=== PATIENT | female | born 1995 | race Caucasian/White ===

== ENCOUNTER 2018-04-18 23:11 | Emergency (ER) | payer OTHER ==
[~2018-04-18 23:11] MED LIST: BISM-40 PO; CYCL10TA29 PO; IBUP-1671 PO; IBUP-56 PO; KET10 PO; ONDA4TAB PO; OXYC-865 PO
--- NOTE | 2018-04-18 23:26 | ER Report ---
History and Physical Time Seen By MD: 23:25 Hx. of Stated Complaint: GASSY, GI PAIN FOR ABOUT A WEEK. LOOSE STOOL, TONIGHT THE STOOL WAS BLACK HPI/ROS CHIEF COMPLAINT: GI discomfort, dark stool HISTORY OF PRESENT ILLNESS: Patient is a 23-year-old female here with complaints of being "gassy"for approximately 1 week now with dark stools this evening. Patient admits to taking Pepto-Bismol yesterday without relief of symptoms. Patient reports feeling slightly dizzy and mildly fatigued today. Patient is afebrile and hemodynamically stable at time of evaluation no acute distress. REVIEW OF SYSTEMS: Constitutional: No fever, no chills. Eyes: No discharge. ENT: No sore throat. Cardiovascular: No chest pain, no palpitations. Respiratory: No cough, no shortness of breath. Gastrointestinal: No abdominal pain, no vomiting, + dark stool Genitourinary: No hematuria. Musculoskeletal: No back pain. Skin: No rashes. Neurological: No headache. Allergies: Coded Allergies: pineapple (Unverified Allergy, Mild, 04/18/18) lactase (Unverified Allergy, Unknown, 04/18/18) wheat (Unverified Allergy, Unknown, 04/18/18) Home Meds Active Scripts Oxycodone Hcl/Acetaminophen (PERCOCET 5-325 MG TABLET) 1 Each Tablet, 1 EACH PO Q4-6H Y for pain, #12 Prov:MARTHA HILL DO 03/06/17 Cyclobenzaprine Hcl (CYCLOBENZAPRINE HCL) 10 Mg Tablet, 10 MG PO TID Y for muscle spasm relief, #20 TAB Prov:MARTHA HILL DO 03/06/17 Reported Medications Ibuprofen (MOTRIN IB) 200 Mg Tablet, 3 TAB PO Q6-8H Y for PAIN 03/06/17 Hx Smoking: No Exposure to Second Hand Smoke?: No Hx Substance Use Disorder: No Hx Alcohol Use: No Constitutional Vital Sign - Last 24 Hours 04/18/18 04/18/18 04/18/18 04/18/18 23:11 23:18 23:21 23:26 Temp 98.7 Pulse ??? 65 67 Resp 12 B/P (MAP) 107/60 107/60 (76) Pulse Ox 96 95 O2 Delivery Room Air 04/18/18 04/18/18 04/18/18 04/19/18 23:30 23:41 23:56 00:00 Pulse 67 80 B/P (MAP) 98/66 (77) ???/??? (1665) Pulse Ox 94 96 04/19/18 04/19/18 04/19/18 04/19/18 00:11 00:26 00:41 00:56 Pulse ? Physical Exam General Appearance: The patient is alert, has no immediate need for airway protection and no signs of toxicity. Eyes: Pupils equal and round no pallor or injection. ENT, Mouth: Mucous membranes are moist. Respiratory: There are no retractions, lungs are clear to auscultation. Cardiovascular: Regular rate and rhythm. Gastrointestinal: Abdomen is soft and non tender, no masses, bowel sounds normal, + black stool on [place] Neurological: No focal neurological deficits Skin: Warm and dry, no rashes. Musculoskeletal: Neck is supple non tender. Extremities are nontender, nonswollen and have full range of motion. DIFFERENTIAL DIAGNOSIS: After history and physical exam differential diagnosis was considered for gastrointestinal bleeding, Pepto-Bismol, GI discomfort Medical Decision Making Data Points Result Diagram: 04/19/18 0000 04/19/18 0000 Laboratory Hematology Test 04/18/18 23:27 04/18/18 23:44 04/19/18 00:00 Urine Color Straw Urine Clarity Clear Urine pH 7.0 pH (4.8-9.5) Urine Specific Addison 1.012 Urine Protein Negative mg/dL (NEGATIVE) Urine Glucose (UA) Negative mg/dL (NEGATIVE) Urine Ketones Negative mg/dL (NEGATIVE) Urine Blood Negative (NEGATIVE) Urine Nitrite Negative (NEGATIVE) Urine Bilirubin Negative (NEGATIVE) Urine Urobilinogen Negative mg/dL (0.2-1.9) Urine Leukocyte Esterase Trace (NEGATIVE) Urine RBC <1 /HPF (0-2/HPF) Urine WBC 1 /HPF (0-5/HPF) Urine Squamous Epithelial Cells Many /LPF (</=FEW) Urine Transitional Epithelial Cells Few /LPF (NONE-FEW) Urine Bacteria Negative /HPF (NONE-FEW) Urine Mucus None /HPF (NONE-FEW) Stool Occult Blood (IFOB) Negative (NEGATIVE) Red Blood Count 4.94 M/uL (4.17-5.56) Mean Corpuscular Volume 92.4 fL (80.0-96.0) Mean Corpuscular Hemoglobin 32.1 pg (26.0-33.0) Mean Corpuscular Hemoglobin Concent 34.7 g/dL (32.0-36.0) Red Cell Distribution Width 13.4 % (11.5-14.5) Mean Platelet Volume 9.0 fL (7.2-11.1) Neutrophils (%) (Auto) 34.4 % (39.4-72.5) Lymphocytes (%) (Auto) 57.5 % (17.6-49.6) Monocytes (%) (Auto) 5.8 % (4.1-12.4) Eosinophils (%) (Auto) 1.9 % (0.4-6.7) Basophils (%) (Auto) 0.4 % (0.3-1.4) Nucleated RBC Relative Count (auto) 0.0 /100WBC Neutrophils # (Auto) 2.6 K/uL (2.0-7.4) Lymphocytes # (Auto) 4.4 K/uL (1.3-3.6) Monocytes # (Auto) 0.4 K/uL (0.3-1.0) Eosinophils # (Auto) 0.1 K/uL (0.0-0.5) Basophils # (Auto) 0.0 K/uL (0.0-0.1) Nucleated RBC Absolute Count (auto) 0.00 K/uL Sodium Level 141 mmol/L (137-145) Potassium Level 3.3 mmol/L (3.5-5.0) Chloride Level 101 mmol/L (98-107) Carbon Dioxide Level 26 mmol/L (22-31) Blood Urea Nitrogen 28 mg/dl (7-18) Creatinine 0.80 mg/dl (0.52-1.04) Glomerular Filtration Rate Calc > 60.0 Random Glucose 85 mg/dl (75-110) Calcium Level 8.9 mg/dl (8.4-10.2) Total Bilirubin 0.3 mg/dl (0.2-1.3) Aspartate Amino Transf (AST/SGOT) 25 U/L (0-35) Alanine Aminotransferase (ALT/SGPT) 21 U/L (0-56) Alkaline Phosphatase 66 U/L (0-126) Total Protein 7.9 g/dl (6.3-8.2) Albumin 4.6 g/dl (3.5-5.0) Lipase 90 U/L (23-300) Chemistry Test 04/18/18 23:27 04/18/18 23:44 04/19/18 00:00 Urine Color Straw Urine Clarity Clear Urine pH 7.0 pH (4.8-9.5) Urine Specific Addison 1.012 Urine Protein Negative mg/dL (NEGATIVE) Urine Glucose (UA) Negative mg/dL (NEGATIVE) Urine Ketones Negative mg/dL (NEGATIVE) Urine Blood Negative (NEGATIVE) Urine Nitrite Negative (NEGATIVE) Urine Bilirubin Negative (NEGATIVE) Urine Urobilinogen Negative mg/dL (0.2-1.9) Urine Leukocyte Esterase Trace (NEGATIVE) Urine RBC <1 /HPF (0-2/HPF) Urine WBC 1 /HPF (0-5/HPF) Urine Squamous Epithelial Cells Many /LPF (</=FEW) Urine Transitional Epithelial Cells Few /LPF (NONE-FEW) Urine Bacteria Negative /HPF (NONE-FEW) Urine Mucus None /HPF (NONE-FEW) Stool Occult Blood (IFOB) Negative (NEGATIVE) White Blood Count 7.6 k/uL (4.5-11.0) Red Blood Count 4.94 M/uL (4.17-5.56) Hemoglobin 15.8 g/dL (12.0-16.0) Hematocrit 45.6 % (34.0-47.0) Mean Corpuscular Volume 92.4 fL (80.0-96.0) Mean Corpuscular Hemoglobin 32.1 pg (26.0-33.0) Mean Corpuscular Hemoglobin Concent 34.7 g/dL (32.0-36.0) Red Cell Distribution Width 13.4 % (11.5-14.5) Platelet Count 185 K/uL (150-450) Mean Platelet Volume 9.0 fL (7.2-11.1) Neutrophils (%) (Auto) 34.4 % (39.4-72.5) Lymphocytes (%) (Auto) 57.5 % (17.6-49.6) Monocytes (%) (Auto) 5.8 % (4.1-12.4) Eosinophils (%) (Auto) 1.9 % (0.4-6.7) Basophils (%) (Auto) 0.4 % (0.3-1.4) Nucleated RBC Relative Count (auto) 0.0 /100WBC Neutrophils # (Auto) 2.6 K/uL (2.0-7.4) Lymphocytes # (Auto) 4.4 K/uL (1.3-3.6) Monocytes # (Auto) 0.4 K/uL (0.3-1.0) Eosinophils # (Auto) 0.1 K/uL (0.0-0.5) Basophils # (Auto) 0.0 K/uL (0.0-0.1) Nucleated RBC Absolute Count (auto) 0.00 K/uL Glomerular Filtration Rate Calc > 60.0 Calcium Level 8.9 mg/dl (8.4-10.2) Total Bilirubin 0.3 mg/dl (0.2-1.3) Aspartate Amino Transf (AST/SGOT) 25 U/L (0-35) Alanine Aminotransferase (ALT/SGPT) 21 U/L (0-56) Alkaline Phosphatase 66 U/L (0-126) Total Protein 7.9 g/dl (6.3-8.2) Albumin 4.6 g/dl (3.5-5.0) Lipase 90 U/L (23-300) Urinalysis Test 04/18/18 23:27 Urine Color Straw Urine Clarity Clear Urine pH 7.0 pH (4.8-9.5) Urine Specific Addison 1.012 Urine Protein Negative mg/dL (NEGATIVE) Urine Glucose (UA) Negative mg/dL (NEGATIVE) Urine Ketones Negative mg/dL (NEGATIVE) Urine Blood Negative (NEGATIVE) Urine Nitrite Negative (NEGATIVE) Urine Bilirubin Negative (NEGATIVE) Urine Urobilinogen Negative mg/dL (0.2-1.9) Urine Leukocyte Esterase Trace (NEGATIVE) Urine RBC <1 /HPF (0-2/HPF) Urine WBC 1 /HPF (0-5/HPF) Urine Squamous Epithelial Cells Many /LPF (</=FEW) Urine Transitional Epithelial Cells Few /LPF (NONE-FEW) Urine Bacteria Negative /HPF (NONE-FEW) Urine Mucus None /HPF (NONE-FEW) ED Course/Re-evaluation ED Course Patient is a 23-year-old female here with complaints of black stool and feeling "gassy" for approximately 1 week. Digital rectal exam was performed and stool sample was sent for Hemoccult which was negative. Hemoglobin and hematocrit were stable compared to prior labs. Patient was given normal saline bolus for symptomatic relief. I updated the patient regarding the findings and she voiced understanding. Patient was hemodynamically stable at time of discharge. Decision to Disposition Date: Apr 19, 2018 Decision to Disposition Time: 01:07 Depart Departure Latest Vital Signs Vital Signs Date Time Temp Pulse Resp B/P (MAP) Pulse Ox O2 Delivery O2 Flow Rate FiO2 04/19/18 00:56 ??? 04/19/18 00:00 ???/??? (1665) 04/18/18 23:56 96 04/18/18 23:18 98.7 12 Room Air Impression: Primary Impression: Dark stools Condition: Improved Disposition: HOME OR SELF-CARE Additional Instructions: Your blood levels were stable today. Please follow-up with her family doctor in one week. Please return promptly if you develop recurrent dark stools, abdominal pain, nausea, vomiting SHAHLA GERARD DO Apr 18, 2018 23:26
[2018-04-18] MEDS ORDERED: NS(*) 0.9% 1000 ML BAG 1,000 ML IV ONE (23:50)
[2018-04-19 00:21] LABS: PLATELET COUNT, AUTOMATED 185 K/uL (150-450)
== END 2018-04-19 01:10 | disposition home or self-care (01) ==
LOC: ER 23:44
DX: R14.3 Flatulence (principal)
CPT/HCPCS: 81001; 82274; 83690; 85025; 86850; 86900; 86901; 96360; 99283; J7030; 82040; 82247; 82310; 82374; 82435; 82565; 82947; 84075; 84132; 84155; 84295; 84450; 84460; 84520